=== PATIENT | male | born 1965 | race Caucasian/White ===

== ENCOUNTER 2023-01-19 08:09 | Day surgery (SDC) | payer OTHER ==
[~2023-01-19] VITALS: Ht 175.3 cm; Wt 67.1 kg
[2023-01-19] MEDS ORDERED: fentaNYL citrate 0.05 MG/ML VIAL ONE (09:06)
[2023-01-19] MEDS ORDERED: diphenhydrAMINE 50 MG/ML VIAL ONE (09:06)
[2023-01-19] MEDS ORDERED: MIDAZOLAM 5 MG/5 ML VIAL ONE (09:07)
[2023-01-19] MEDS ORDERED: LIDOCAINE 2% 100 MG/5 ML UJET TP ONE (09:07)
[2023-01-19] MEDS ORDERED: diphenhydrAMINE 50 MG/ML VIAL IVP ONE (10:25)
[2023-01-19] MEDS ORDERED: fentaNYL citrate 0.05 MG/ML VIAL IVP ONE (10:25)
[2023-01-19] MEDS ORDERED: MIDAZOLAM 5 MG/5 ML VIAL IV ONE (10:25)
== END 2023-01-19 10:48 | disposition home or self-care (01) ==
LOC: MDS 08:09 → MMU 08:10 → MDS 10:48
PROVIDERS: ATTEND Internal Medicine Gastroenterology
DX: Z12.11 Encounter for screening for malignant neoplasm of colon (principal); D12.4 Benign neoplasm of descending colon; K21.9 Gastro-esophageal reflux disease without esophagitis; F17.210 Nicotine dependence, cigarettes, uncomplicated; Z79.899 Other long term (current) drug therapy
CPT/HCPCS: 45385; J1200; J2250; J3010